=== PATIENT | male | born 1980 | race Caucasian/White ===

== ENCOUNTER 2018-03-14 12:37 | Inpatient (IN) | payer OTHER ==
[~2018-03-14] VITALS: Ht 167.6 cm; Wt 71.8 kg
[~2018-03-14 12:37] MED LIST: ATIVAN1 MG PO; NOHOMEMEDICATIONS; ULTRAM 50MG TAB50 MG PO
[2018-03-14 12:45] VITALS: BP 96/57
[2018-03-14] MEDS ORDERED: LISINOPRIL10 MG PO ×2 (12:51→20:20)
[2018-03-14] MEDS ORDERED: TRAZODONE HCL100 MG PO (12:51)
[2018-03-14 13:23] LABS: URINE BILIRUBIN NEGATIVE (Negative); URINE BLOOD 3+ (Negative); URINE CLARITY CLEAR; URINE COLOR YELLOW; URINE GLUCOSE-RANDOM 1+ (Negative); URINE KETONES NEGATIVE (Negative); URINE LEUKOCYTES-REFLEX NEGATIVE (Negative); URINE NITRITE-REFLEX NEGATIVE (Negative); URINE PROTEIN 2+ (Negative); URINE SPECIFIC GRAVITY 1.015 (1.005-1.030); URINE UROBILINOGEN 0.2 E.U./dl (0.2-1.0)
[2018-03-14 13:30] LABS: ABSOLUTE BASOPHILS 0.1 thou/uL (0.0-0.2); ABSOLUTE EOSINOPHILS 0.1 thou/uL (0.0-0.7); ABSOLUTE LYMPHOCYTES 1.1 thou/uL (0.8-5.3); ABSOLUTE MONOCYTES 1.8 thou/uL (0.0-1.2); ABSOLUTE NEUTROPHILS 6.9 thou/uL (1.6-8.1); BASOPHILS 0.5 %; EOSINOPHILS 0.6 %; HEMATOCRIT 44.4 % (42.0-52.0); HEMOGLOBIN 15.7 gm/dL (14.0-18.0); LYMPHOCYTES 11.3 %; MCH 29.5 pg (26.0-34.0); MCHC 35.4 g/dL (28.0-37.0); MCV 83.4 fL (80.0-100.0); MONOCYTES 18.3 %; MPV 7.1 fl. (7.2-11.1); NUCLEATED RBCS 0 /100WBC; PLATELET COUNT* 331 thou/uL (150-400); POLYS 69.3 %; RBC 5.33 mil/uL (4.50-6.00); RDW-CV 13.4 % (10.5-14.5)
[2018-03-14 13:31] LABS: AMP/METHAMP Negative (Negative); BARBITURATES POSITIVE (Negative); BENZODIAZEPINES Negative (Negative); COCAINE Negative (Negative); METHADONE Negative (Negative); OPIATES Negative (Negative); PCP Negative (Negative); THC Negative (Negative)
[2018-03-14 13:33] LABS: CALCIUM 10.2 mg/dL (8.5-10.1); CREATININE 5.3 mg/dL (0.6-1.3); POTASSIUM 3.7 mmol/L (3.5-5.1)
[2018-03-14 13:33] LABS: BACTERIA-REFLEX None Seen /HPF (None Seen); SQUAMOUS 0-3 Few /LPF (0-3); URINE RBC 0-2 Rare /HPF (0-2); URINE WBC-REFLEX None Seen /HPF (0-5)
[2018-03-14 13:34] LABS: CASTS None Seen /LPF (None Seen); CRYSTALS None Seen /LPF (None Seen)
[2018-03-14 13:38] LABS: ALBUMIN 4.5 g/dL (3.4-5.0); MAGNESIUM 2.6 mg/dL (1.8-2.4); TOTAL BILIRUBIN 0.3 mg/dL (<0.1-1.0); TOTAL PROTEIN 7.9 g/dL (6.4-8.2)
[2018-03-14 15:18] VITALS: BP 114/47
[2018-03-14 15:35] VITALS: BP 85/50
[2018-03-14 16:06] LABS: CALCIUM 10.4 mg/dL (8.5-10.1); CREATININE 4.7 mg/dL (0.6-1.3); POTASSIUM 3.5 mmol/L (3.5-5.1)
[2018-03-14 19:11] LABS: CALCIUM 9.3 mg/dL (8.5-10.1); CREATININE 4.6 mg/dL (0.6-1.3); POTASSIUM 3.6 mmol/L (3.5-5.1)
[2018-03-14 19:46] VITALS: BP 100/54
[2018-03-14] MEDS ORDERED: TRAZODONE 150150 M1 PO (20:20)
[2018-03-14 21:41] VITALS: BP 101/49
[2018-03-14 23:14] LABS: CALCIUM 9.3 mg/dL (8.5-10.1); CREATININE 4.3 mg/dL (0.6-1.3); POTASSIUM 4.1 mmol/L (3.5-5.1)
[2018-03-15] VITALS (7 sets, daily range): BP systolic 89–126; BP diastolic 53–81
[2018-03-15 06:29] LABS: HEMATOCRIT 45.9 % (42.0-52.0); HEMOGLOBIN 15.9 gm/dL (14.0-18.0); MCH 29.3 pg (26.0-34.0); MCHC 34.5 g/dL (28.0-37.0); RBC 5.4 mil/uL (4.50-6.00); RDW-CV 13.5 % (10.5-14.5); WBC 7.2 thou/uL (4.0-11.0)
[2018-03-15 06:40] LABS: CALCIUM 9.9 mg/dL (8.5-10.1); CREATININE 3.6 mg/dL (0.6-1.3); POTASSIUM 4.6 mmol/L (3.5-5.1)
--- NOTE | 2018-03-15 12:28 | EKG ---
[place] [address] ELECTROCARDIOGRAM REPORT Name: JUANCHOALBERTO TOMMY Room: [address] ADM IN .R.#: [id number] Admission: 03/14/18 Attend Phys: Mushtaq Vallejo, Discharge: Date of : 80 Report #: [id number] THIS REPORT FOR: //name// [facility] ED Test Date: 2018-03-14 Test Time: 14:14:14 Pat Name: ALBERTO DAWKINS Department: Room: [facility] Gender: M Medical Front Desk Specialist: DIAMOND : 1980 Requested By: Arlene Cerrato Order Number: [id number] MD: Damian Reyes Measurements Intervals [place] Rate: 86 P: 53 [place]: 131 QRS: 71 QRSD: 102 T: -17 QT: 402 QTc: 481 Interpretive Statements Sinus rhythm Probable left atrial enlargement Inferior infarct, age indeterminate Minimal ST elevation, anterior leads No previous ECG available for comparison Electronically Signed On 03-15-2018 12:27:50 CDT by Damian Reyes [email or web address] <ELECTRONICALLY SIGNED> By: Damian Reyes MD, [facility] 03/15/18 1227 1414 1414 Damian Reyes MD, [facility] /EPI
[2018-03-15 13:05] LABS: URINE BILIRUBIN NEGATIVE (Negative); URINE BLOOD 1+ (Negative); URINE CLARITY CLEAR; URINE COLOR STRAW; URINE GLUCOSE-RANDOM 1+ (Negative); URINE KETONES NEGATIVE (Negative); URINE LEUKOCYTES NEGATIVE (Negative); URINE NITRITE NEGATIVE (Negative); URINE PROTEIN NEGATIVE (Negative); URINE SPECIFIC GRAVITY <= 1.005 (1.005-1.030); URINE UROBILINOGEN 0.2 E.U./dl (0.2-1.0)
[2018-03-15 13:12] LABS: SQUAMOUS 0-3 Few /LPF (0-3)
[2018-03-15 13:13] LABS: BACTERIA 1-9 Few /HPF (None Seen); CASTS None Seen /LPF (None Seen); CRYSTALS None Seen /LPF (None Seen); MUCUS 0-3 Light strn/LPF (None Seen); URINE RBC 3-10 Few /HPF (0-2); URINE WBC 0-5 Rare /HPF (0-5)
[2018-03-15 13:33] LABS: CALCIUM 10.1 mg/dL (8.5-10.1); CREATININE 3.5 mg/dL (0.6-1.3); POTASSIUM 4.3 mmol/L (3.5-5.1)
[2018-03-15 23:11] LABS: CALCIUM 9.7 mg/dL (8.5-10.1); CREATININE 2.8 mg/dL (0.6-1.3); POTASSIUM 4.5 mmol/L (3.5-5.1)
[2018-03-16 00:30] VITALS: BP 129/75
[2018-03-16 04:00] VITALS: BP 117/71
[2018-03-16 05:51] LABS: ALBUMIN 4.2 g/dL (3.4-5.0); CALCIUM 10.2 mg/dL (8.5-10.1); CREATININE 2.6 mg/dL (0.6-1.3); MAGNESIUM 2.8 mg/dL (1.8-2.4); PHOSPHORUS* 3.8 mg/dL (2.5-4.9)
[2018-03-16 05:57] LABS: POTASSIUM 5.5 mmol/L (3.5-5.1)
[2018-03-16 08:00] VITALS: BP 119/76
[2018-03-16 11:49] VITALS: BP 120/76
[2018-03-16 12:02] LABS: CALCIUM 9.3 mg/dL (8.5-10.1); CREATININE 2.4 mg/dL (0.6-1.3); POTASSIUM 5.3 mmol/L (3.5-5.1)
[2018-03-16 15:38] VITALS: BP 123/70
[2018-03-16 15:41] LABS: CALCIUM 9.6 mg/dL (8.5-10.1); CREATININE 2.2 mg/dL (0.6-1.3)
[2018-03-16 20:20] VITALS: BP 116/85
[2018-03-16 20:53] LABS: CALCIUM 8.5 mg/dL (8.5-10.1); CREATININE 2.3 mg/dL (0.6-1.3); POTASSIUM 5.5 mmol/L (3.5-5.1)
[2018-03-16 23:40] LABS: CALCIUM 8.5 mg/dL (8.5-10.1); CREATININE 2.3 mg/dL (0.6-1.3); POTASSIUM 5.4 mmol/L (3.5-5.1)
[2018-03-17] VITALS: BP 114/60
[2018-03-17 04:00] VITALS: BP 109/71
[2018-03-17 04:45] LABS: CALCIUM 8.9 mg/dL (8.5-10.1); CREATININE 2.1 mg/dL (0.6-1.3); POTASSIUM 5.8 mmol/L (3.5-5.1)
[2018-03-17 06:02] LABS: CALCIUM 9.5 mg/dL (8.5-10.1); CREATININE 1.9 mg/dL (0.6-1.3); POTASSIUM 5.7 mmol/L (3.5-5.1)
[2018-03-17 08:00] VITALS: BP 121/98
[2018-03-17 09:41] LABS: ABSOLUTE BASOPHILS 0.1 thou/uL (0.0-0.2); ABSOLUTE EOSINOPHILS 0.1 thou/uL (0.0-0.7); ABSOLUTE LYMPHOCYTES 1.8 thou/uL (0.8-5.3); ABSOLUTE MONOCYTES 0.9 thou/uL (0.0-1.2); ABSOLUTE NEUTROPHILS 5.2 thou/uL (1.6-8.1); BASOPHILS 0.7 %; EOSINOPHILS 1.3 %; LYMPHOCYTES 21.9 %; MCH 29.4 pg (26.0-34.0); MCHC 34.1 g/dL (28.0-37.0); MCV 86.1 fL (80.0-100.0); MONOCYTES 11.5 %; MPV 6.9 fl. (7.2-11.1); NUCLEATED RBCS 0 /100WBC; PLATELET COUNT* 341 thou/uL (150-400); POLYS 64.6 %; RBC 5.46 mil/uL (4.50-6.00); RDW-CV 13.4 % (10.5-14.5)
[2018-03-17 10:16] LABS: ALBUMIN 4.1 g/dL (3.4-5.0); CALCIUM 8.5 mg/dL (8.5-10.1); MAGNESIUM 2.1 mg/dL (1.8-2.4); PHOSPHORUS* 2.6 mg/dL (2.5-4.9); POTASSIUM 5.2 mmol/L (3.5-5.1); TOTAL BILIRUBIN 0.3 mg/dL (<0.1-1.0); TOTAL PROTEIN 7.5 g/dL (6.4-8.2)
[2018-03-17 12:00] VITALS: BP 107/78
[2018-03-17 16:00] VITALS: BP 109/64
[2018-03-17 20:15] VITALS: BP 106/55
[2018-03-18] VITALS: BP 106/59
[2018-03-18 04:00] VITALS: BP 116/71
[2018-03-18 08:00] VITALS: BP 114/79
[2018-03-18 11:40] LABS: ALBUMIN 3.5 g/dL (3.4-5.0); CALCIUM 8.8 mg/dL (8.5-10.1); CREATININE 1.4 mg/dL (0.6-1.3); POTASSIUM 4.9 mmol/L (3.5-5.1); TOTAL BILIRUBIN 0.2 mg/dL (<0.1-1.0); TOTAL PROTEIN 6.2 g/dL (6.4-8.2)
[2018-03-18 11:58] VITALS: BP 134/84
[2018-03-18 16:00] VITALS: BP 125/78
[2018-03-18 17:58] LABS: URINE BILIRUBIN NEGATIVE (Negative); URINE BLOOD NEGATIVE (Negative); URINE CLARITY CLEAR; URINE COLOR YELLOW; URINE GLUCOSE-RANDOM 2+ (Negative); URINE KETONES NEGATIVE (Negative); URINE LEUKOCYTES-REFLEX NEGATIVE (Negative); URINE NITRITE-REFLEX NEGATIVE (Negative); URINE PROTEIN NEGATIVE (Negative); URINE UROBILINOGEN 0.2 E.U./dl (0.2-1.0)
[2018-03-18 18:05] LABS: AMP/METHAMP Negative (Negative); BARBITURATES POSITIVE (Negative); BENZODIAZEPINES Negative (Negative); COCAINE Negative (Negative); METHADONE Negative (Negative); OPIATES POSITIVE (Negative); PCP Negative (Negative); THC Negative (Negative)
[2018-03-19] VITALS: BP 136/98
[2018-03-19 04:00] VITALS: BP 136/73
[2018-03-19 06:13] LABS: CALCIUM 8.4 mg/dL (8.5-10.1); CREATININE 1.3 mg/dL (0.6-1.3); MAGNESIUM 1.9 mg/dL (1.8-2.4); PHOSPHORUS* 2.8 mg/dL (2.5-4.9)
[2018-03-19 08:00] VITALS: BP 138/64
[2018-03-19] MEDS ORDERED: HYDROCODONE-AP1 EA11 PO (14:38)
[2018-03-19] MEDS ORDERED: ATIVAN1 MG PO (14:39)
[2018-03-19] MEDS ORDERED: THIAMINE HCL100 MG PO (14:40)
[2018-03-19] MEDS ORDERED: ZOLOFT50 MG PO (14:41)
[2018-03-19] MEDS ORDERED: PRENATAL PO (14:41)
[2018-03-19 14:44] VITALS: BP 138/64
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
== END 2018-03-19 15:14 | disposition home or self-care (01) | DRG 683 ==
LOC: M.ERS 12:37 → M.2W 14:27 → M.TBA-ER 14:27 → M.2W 15:08
PROVIDERS: Internal Medicine; Internal Medicine Nephrology; Personal Emergency Response Attendant; ADMIT Family Medicine
DX: N17.9 Acute kidney failure, unspecified (principal); E87.1 Hypo-osmolality and hyponatremia; M62.82 Rhabdomyolysis; I10 Essential (primary) hypertension; F43.10 Post-traumatic stress disorder, unspecified; F31.9 Bipolar disorder, unspecified; E87.5 Hyperkalemia; F10.10 Alcohol abuse, uncomplicated; K59.00 Constipation, unspecified; F41.1 Generalized anxiety disorder; F17.210 Nicotine dependence, cigarettes, uncomplicated; Z79.899 Other long term (current) drug therapy; Z88.8 Allergy status to other drugs, medicaments and biological substances

== ENCOUNTER 2018-03-19 22:51 | Emergency (ER) | payer OTHER ==
[~2018-03-19] VITALS: Ht 172.7 cm; Wt 86.2 kg
[~2018-03-19 22:51] MED LIST changes: +HYDROCODONE-AP1 EA11 PO; +LISINOPRIL10 MG PO; +PRENATAL PO; +THIAMINE HCL100 MG PO; +TRAZODONE 150150 M1 PO; +TRAZODONE HCL100 MG PO; +ZOLOFT50 MG PO
[2018-03-19 23:43] LABS: URINE BILIRUBIN NEGATIVE (Negative); URINE BLOOD NEGATIVE (Negative); URINE CLARITY CLEAR; URINE COLOR YELLOW; URINE GLUCOSE-RANDOM 3+ (Negative); URINE KETONES NEGATIVE (Negative); URINE LEUKOCYTES-REFLEX NEGATIVE (Negative); URINE NITRITE-REFLEX NEGATIVE (Negative); URINE PROTEIN NEGATIVE (Negative); URINE UROBILINOGEN 0.2 E.U./dl (0.2-1.0)
[2018-03-19 23:51] LABS: AMP/METHAMP Negative (Negative); BARBITURATES Negative (Negative); BENZODIAZEPINES Negative (Negative); COCAINE Negative (Negative); METHADONE Negative (Negative); OPIATES POSITIVE (Negative); PCP Negative (Negative); THC Negative (Negative)
[2018-03-19 23:53] LABS: ABSOLUTE BASOPHILS 0.1 thou/uL (0.0-0.2); ABSOLUTE EOSINOPHILS 0.3 thou/uL (0.0-0.7); ABSOLUTE LYMPHOCYTES 1.5 thou/uL (0.8-5.3); ABSOLUTE MONOCYTES 0.8 thou/uL (0.0-1.2); ABSOLUTE NEUTROPHILS 7.9 thou/uL (1.6-8.1); BASOPHILS 0.8 %; EOSINOPHILS 2.7 %; HEMATOCRIT 37.9 % (42.0-52.0); LYMPHOCYTES 14.5 %; MCH 29.4 pg (26.0-34.0); MCV 86.3 fL (80.0-100.0); MONOCYTES 7.2 %; MPV 6.8 fl. (7.2-11.1); NUCLEATED RBCS 0 /100WBC; PLATELET COUNT* 287 thou/uL (150-400); POLYS 74.8 %; RBC 4.39 mil/uL (4.50-6.00); RDW-CV 12.9 % (10.5-14.5); WBC 10.6 thou/uL (4.0-11.0)
[2018-03-19 23:54] LABS: HEMOGLOBIN 12.9 gm/dL (14.0-18.0)
[2018-03-20 00:02] LABS: CALCIUM 8.4 mg/dL (8.5-10.1); CREATININE 1.4 mg/dL (0.6-1.3); POTASSIUM 4.2 mmol/L (3.5-5.1)
[2018-03-20 00:06] LABS: ALBUMIN 3.4 g/dL (3.4-5.0); MAGNESIUM 1.7 mg/dL (1.8-2.4); TOTAL BILIRUBIN 0.1 mg/dL (<0.1-1.0); TOTAL PROTEIN 6.4 g/dL (6.4-8.2)
[2018-03-20 00:56] VITALS: BP 148/97
--- NOTE | 2018-03-26 14:22 | NUR ---
WAS ASKED BY DR MCKEON TO CALL IN SCRIPTS FOR PT TO [facility] [phone] TRAZADONE 150MG 1 PO QHS, SETRALINE 50MG 1 PO QD, PNV WITH Ca, Fe, Fa 1MG QD AND THIAMINE HCL 100MG 1 PO QD. 30 DAY SUPPLY FOR ALL SCRIPTS. LEFT ON [facility] NEW SCRIPT LINE
== END 2018-03-20 00:57 ==
LOC: M.ERS 22:51
PROVIDERS: Personal Emergency Response Attendant
DX: Z02.89 Encounter for other administrative examinations (principal); I10 Essential (primary) hypertension; F41.9 Anxiety disorder, unspecified; F31.9 Bipolar disorder, unspecified; F17.210 Nicotine dependence, cigarettes, uncomplicated; Z88.8 Allergy status to other drugs, medicaments and biological substances

== ENCOUNTER 2018-04-10 20:17 | Emergency (ER) | payer OTHER ==
[~2018-04-10] VITALS: Ht 167.6 cm; Wt 95.3 kg
[2018-04-10 20:52] LABS: ABSOLUTE BASOPHILS 0.1 thou/uL (0.0-0.2); ABSOLUTE EOSINOPHILS 0.1 thou/uL (0.0-0.7); ABSOLUTE LYMPHOCYTES 2.2 thou/uL (0.8-5.3); ABSOLUTE MONOCYTES 0.8 thou/uL (0.0-1.2); ABSOLUTE NEUTROPHILS 5.8 thou/uL (1.6-8.1); BASOPHILS 0.9 %; EOSINOPHILS 0.6 %; HEMATOCRIT 41.6 % (42.0-52.0); LYMPHOCYTES 24.9 %; MCH 29.2 pg (26.0-34.0); MCHC 33.8 g/dL (28.0-37.0); MCV 86.6 fL (80.0-100.0); MPV 6.5 fl. (7.2-11.1); NUCLEATED RBCS 0 /100WBC; PLATELET COUNT* 311 thou/uL (150-400); POLYS 64.6 %; RDW-CV 14.6 % (10.5-14.5)
[2018-04-10 20:53] LABS: CALCIUM 7.9 mg/dL (8.5-10.1); POTASSIUM 3.1 mmol/L (3.5-5.1)
[2018-04-10 20:58] LABS: ALBUMIN 3.6 g/dL (3.4-5.0); TOTAL BILIRUBIN 0.3 mg/dL (<0.1-1.0); TOTAL PROTEIN 6.7 g/dL (6.4-8.2)
[2018-04-10 21:06] LABS: URINE BILIRUBIN NEGATIVE (Negative); URINE BLOOD NEGATIVE (Negative); URINE CLARITY CLEAR; URINE COLOR YELLOW; URINE GLUCOSE-RANDOM NEGATIVE (Negative); URINE KETONES NEGATIVE (Negative); URINE LEUKOCYTES-REFLEX NEGATIVE (Negative); URINE NITRITE-REFLEX NEGATIVE (Negative); URINE PROTEIN NEGATIVE (Negative); URINE SPECIFIC GRAVITY <= 1.005 (1.005-1.030); URINE UROBILINOGEN 0.2 E.U./dl (0.2-1.0)
[2018-04-10 21:41] LABS: AMP/METHAMP Negative (Negative); BARBITURATES Negative (Negative); BENZODIAZEPINES Negative (Negative); COCAINE Negative (Negative); METHADONE Negative (Negative); OPIATES Negative (Negative); PCP Negative (Negative); THC Negative (Negative)
[2018-04-11] MEDS ORDERED: CHLORDIAZEPOXID10 MG PO (06:10)
[2018-04-11 06:11] VITALS: BP 127/98
== END 2018-04-11 06:12 | disposition home or self-care (01) ==
LOC: M.ERS 20:17
PROVIDERS: Emergency Medicine
DX: F10.129 Alcohol abuse with intoxication, unspecified (principal); R10.9 Unspecified abdominal pain; M54.9 Dorsalgia, unspecified; I10 Essential (primary) hypertension; F41.1 Generalized anxiety disorder; F31.9 Bipolar disorder, unspecified

== ENCOUNTER 2019-02-27 10:46 | Emergency (ER) | payer OTHER ==
[~2019-02-27] VITALS: Ht 167.6 cm; Wt 86.2 kg
[~2019-02-27 10:46] MED LIST changes: +CHLORDIAZEPOXID10 MG PO
[2019-02-27 12:02] LABS: URINE BILIRUBIN NEGATIVE (Negative); URINE BLOOD NEGATIVE (Negative); URINE CLARITY CLEAR; URINE COLOR YELLOW; URINE GLUCOSE-RANDOM NEGATIVE (Negative); URINE KETONES NEGATIVE (Negative); URINE LEUKOCYTES-REFLEX NEGATIVE (Negative); URINE NITRITE-REFLEX NEGATIVE (Negative); URINE PROTEIN NEGATIVE (Negative); URINE UROBILINOGEN 0.2 E.U./dl (0.2-1.0)
[2019-02-27 12:02] LABS: ABSOLUTE BASOPHILS 0.1 thou/uL (0.0-0.2); ABSOLUTE EOSINOPHILS 0.5 thou/uL (0.0-0.7); ABSOLUTE LYMPHOCYTES 2.4 thou/uL (0.8-5.3); ABSOLUTE MONOCYTES 1.1 thou/uL (0.0-1.2); ABSOLUTE NEUTROPHILS 5.4 thou/uL (1.6-8.1); BASOPHILS 0.7 %; EOSINOPHILS 5.6 %; HEMATOCRIT 47.6 % (42.0-52.0); HEMOGLOBIN 16.3 gm/dL (14.0-18.0); LYMPHOCYTES 25.5 %; MCH 29.2 pg (26.0-34.0); MCHC 34.3 g/dL (28.0-37.0); MCV 85.1 fL (80.0-100.0); MONOCYTES 11.8 %; MPV 7.3 fl. (7.2-11.1); NUCLEATED RBCS 0 /100WBC; PLATELET COUNT* 257 thou/uL (150-400); POLYS 56.4 %; RBC 5.59 mil/uL (4.50-6.00); RDW-CV 14.5 % (10.5-14.5); WBC 9.6 thou/uL (4.0-11.0)
[2019-02-27 12:09] LABS: AMP/METHAMP Negative (Negative); BARBITURATES Negative (Negative); BENZODIAZEPINES POSITIVE (Negative); COCAINE Negative (Negative); METHADONE Negative (Negative); OPIATES Negative (Negative); PCP Negative (Negative); THC Negative (Negative)
[2019-02-27 12:10] LABS: ANION GAP 10 mmol/L (7-16); BUN 9 mg/dL (7-18); CALCIUM 9.7 mg/dL (8.5-10.1); CHLORIDE 105 mmol/L (98-107); CO2 26 mmol/L (21-32); CREATININE 1.1 mg/dL (0.6-1.3); GLUCOSE 95 mg/dL (70-99); POTASSIUM 3.8 mmol/L (3.5-5.1); SODIUM 141 mmol/L (136-145)
[2019-02-27 12:19] LABS: ALKALINE PHOSPHATASE 118 U/L (46-116); LIPASE 213 U/L (73-393); SGOT 17 U/L (15-37); SGPT 50 U/L (30-65); TOTAL BILIRUBIN 0.3 mg/dL (<0.1-1.0); TOTAL PROTEIN 7.3 g/dL (6.4-8.2); TROPONIN-I LEVEL <0.06 ng/mL (<0.06)
[2019-02-27 12:38] VITALS: BP 158/72
--- NOTE | 2019-03-01 16:53 | EKG ---
[place] [address] ELECTROCARDIOGRAM REPORT Name: ALBERTO DAWKINS Room: [facility]#: [id number] Admission: 02/27/19 Attend Phys: Discharge: 02/27/19 Date of : 80 Report #: [id number] THIS REPORT FOR: //name// [facility] ED Test Date: 2019-02-27 Test Time: 10:56:01 Pat Name: ALBERTO DAWKINS Department: Room: Gender: M [employer]: : 1980 Requested By: Horace Grier Order Number: [id number] MD: Jimbo España Measurements Intervals [place] Rate: 117 P: 74 [place]: 122 QRS: 75 QRSD: 93 T: -83 QT: 317 QTc: 443 Interpretive Statements Sinus tachycardia Inferior Q waves noted Baseline wander in lead(s) V1 Compared to ECG 03/14/2018 14:14:14 Sinus rhythm no longer present ST (T wave) deviation no longer present Electronically Signed On 03-01-2019 16:53:13 CDT by Jimbo España [email or web address] <ELECTRONICALLY SIGNED> By: Jimbo España MD, FACC 03/01/19 1653 1056 1056 Jimbo España MD, [facility] /EPI
== END 2019-02-27 12:40 | disposition home or self-care (01) ==
LOC: M.ERS 10:46
PROVIDERS: Nurse Practitioner Family
DX: R07.89 Other chest pain (principal); F17.210 Nicotine dependence, cigarettes, uncomplicated; I10 Essential (primary) hypertension; F41.9 Anxiety disorder, unspecified; F31.9 Bipolar disorder, unspecified; Z88.8 Allergy status to other drugs, medicaments and biological substances